=== PATIENT | female | born 1965 | race Caucasian/White ===

== ENCOUNTER → 2017-07-14 | Outpatient (CLI) | payer BC ==
--- NOTE | 2017-07-14 17:49 | BD ---
EXAMINATION TYPE: MG DEXA axial skeleton. DATE OF EXAM: 07/14/2017 COMPARISON: NONE CLINICAL HISTORY: PT IS A 52 YR OLD FEMALE....ICD-10 CODE: Z78.0 OSTEOPOROSIS Height: 65 Weight: 198 FRAX RISK QUESTIONS: Alcohol (3 or more units per day): NO Family History (Parent hip fracture): UNKNOWN Glucocorticoids (More than 3mos): NO (Ex: prednisone, prednisolone, methylprednisolone, dexamethasone, and hydrocortisone). History of Fracture in Adulthood: NO Secondary Osteoporosis: NO 1. Type 1 Diabetes: NO 2. Hyperthyroidism: NO 3. Menopause before 45: NO 4. Malnutrition: NO 5. Chronic liver disease: NO Rheumatoid Arthritis: NO Current Tobacco Use: NO RISK FACTORS HISTORY OF: Family History of Osteoporosis: UNSURE Active: NO Diet low in dairy products/other sources of calcium: NO Postmenopausal woman: YES AT 47 YRS OLD Hyperparathyroidism: NO Adrenal Insufficiency: NO MEDICATIONS: Thyroid Medications: YES, SYNTHROID How Lon YRS Additional Medications: XANAX, WELLBUTRIN, VIT D Additional History: NONE TO NOTE EXAM MEASUREMENTS: Bone mineral densitometry was performed using the [employer] System. Bone mineral density as measured about the Lumbar spine is: ----- L1-L4(G/cm2): 0.906 T Score Values are as follows: ----- L1: -2.6 ----- L2: -3.4 ----- L3: -2.2 ----- L4: -1.5 ----- L1-L4: -2.3 Bone mineral density THIS IS HER FIRST BONE DENSITY STUDY......BASELINE Bone mineral density about the R hip (g/cm2): 0.760 Bone mineral density about the L hip (g/cm2): 0.721 T Score values are as follows: -----R Neck: -1.7 -----L Neck: -2.1 -----R Total: -2.0 -----L Total: -2.3 Bone mineral density BASELINE STUDY FRAX%'S: THERE IS 7.3% CHANCE OF MAJOR OSTEOPOROTIC FX AND 1.0% FOR HIP FX.....PROBABILITY OF FX IN 10 YRS TIME IMPRESSION: Osteoporosis (T Score less than -2.5) as noted by T Score values at the There is increased fracture risk and therapy is usually indicated based on age. Re-Screen 1-2 years. NOTE: T-SCORE=SD OF THE YOUNG ADULT MEAN.
--- NOTE | 2017-07-15 11:43 | MM ---
Reason for exam: screening (asymptomatic). Last mammogram was performed 1 year and 5 months ago. History: Patient is postmenopausal. Physical Findings: A clinical breast exam by your physician is recommended on an annual basis and results should be correlated with mammographic findings. MG Screening Mammo w CAD Bilateral CC and MLO view(s) were taken. Prior study comparison: February 11, 2016, bilateral MG screening mammo w CAD. December 31, 2013, bilateral MG screening mammo w CAD. There are scattered fibroglandular densities. There is no discrete abnormality. No significant changes when compared with prior studies. ASSESSMENT: Negative, BI-RAD 1 RECOMMENDATION: Routine screening mammogram of both breasts in 1 year.
== END | disposition home or self-care (01) ==
LOC: RADMAMWWP 15:31
PROVIDERS: ATTEND Obstetrics & Gynecology
DX: Z12.31 Encounter for screening mammogram for malignant neoplasm of breast (principal); M81.0 Age-related osteoporosis without current pathological fracture; Z78.0 Asymptomatic menopausal state
CPT/HCPCS: 77080; G0202

== ENCOUNTER 2018-09-01 14:56 | Emergency (ER) | payer BC ==
[2018-09-01 15:02] VITALS: RESP 18
--- NOTE | 2018-09-01 16:10 | ED ---
General Adult HPI - General Chief complaint: Extremity Problem,Nontraumatic Stated complaint: Shoulder pain Source: patient Mode of arrival: ambulatory Limitations: no limitations - Related Data Home Medications Medication Instructions Recorded Confirmed ALPRAZolam [Xanax] 0.25 mg PO DAILY PRN 09/01/18 09/01/18 Aspirin EC [Ecotrin] 325 mg PO DAILY 09/01/18 09/01/18 Atorvastatin [Lipitor] 10 mg PO HS 09/01/18 09/01/18 Levothyroxine Sodium [Synthroid] 150 mcg PO DAILY 09/01/18 09/01/18 buPROPion XL [Wellbutrin Xl] 150 mg PO DAILY 09/01/18 09/01/18 Allergies Allergy/AdvReac Type Severity Reaction Status Date / Time No Known Allergies Allergy Verified 09/01/18 16:28 Review of Systems ROS Statement: Those systems with pertinent positive or pertinent negative responses have been documented in the HPI. ROS Other: All systems not noted in ROS Statement are negative. Past Medical History Past Medical History: Hyperlipidemia, Thyroid Disorder History of Any Multi-Drug Resistant Organisms: None Reported Additional Past Surgical History / Comment(s): Knee Past Psychological History: Anxiety, Depression Smoking Status: Never smoker Past Alcohol Use History: Occasional Past Drug Use History: None Reported General Exam Limitations: no limitations Course Vital Signs 09/01/18 14:58 Temperature 98.2 F Pulse Rate 89 Respiratory 18 Rate Blood Pressure 156/99 O2 Sat by Pulse 99 Oximetry Medical Decision Making - Medical Decision Making Dictation was produced using [employer] dictation software. please excuse any grammatical, word or spelling errors. Chief Complaint: 53-year-old female with past nuchal history of thyroidism presents with pleuritic chest pain 1 day. History of Present Illness: Patient 53-year-old female. Last week she had a arthroscopy of her right knee. She underwent physical therapy of the last couple days. Patient noted that she was having some right-sided pleuritic chest pain. Patient denies any history of asthma or COPD. Denies any shortness of breath at this time. Patient denies any calf pain, popliteal plain or medial thigh pain. Patient has no history of deep venous thrombosis. No family history of blood clots or clotting disorder. The ROS documented in this emergency department record has been reviewed and confirmed by me. Those systems with pertinent positive or negative responses have been documented in the HPI. All other systems are other negative and/or noncontributory. PHYSICAL EXAM: General Impression: Alert and oriented x3, not in acute distress HEENT: Normocephalic atraumatic, extra-ocular movements intact, pupils equal and reactive to light bilaterally, mucous membranes moist. Cardiovascular: Heart regular rate and rhythm, S1&S2 audible, no murmurs, rubs or gallops Chest: Lungs clear to auscultation bilaterally, no rhonchi, no wheeze, no rales Abdomen: Bowel sounds present, abdomen soft, non-tender, non-distended, no organomegaly Musculoskeletal: Pulses present and equal in all extremities, no peripheral edema Motor: Power 5/5 bilaterally, no focal deficits noted Neurological: CN II-XII grossly intact, no focal motor or sensory deficits noted Skin: Intact with no visualized rashes Psych: Normal affect and mood ED course: 53-year-old female presents with chief complaint of pleuritic chest pain. Vital signs upon arrival are within acceptable limits. EKGs benign. Patient is low risk for pulmonary embolus. Over she does have risk factors of pleuritic chest pain and recent surgery. Laboratory evaluation obtained. CBC unremarkable. Metabolic panel negative. D -dimer is 2.76. CT angios obtained showing no acute processes. Patient however does have findings of hiatal hernia. She is notified of this. Patient' s symptoms likely secondary to musculoskeletal strain. She is given a lidocaine patch. At this point there is no concern for acute cardiopulmonary emergency. Patient told to rest. Advised to take one by mouth analgesics for pain. - Lab Data Result diagrams: 09/01/18 16:30 09/01/18 16:30 Lab Results 09/01/18 09/01/18 09/01/18 Range/Units 16:30 16:30 16:30 WBC 7.9 (3.8-10.6) k/uL RBC 4.33 (3.80-5.40) m/uL Hgb 13.4 (11.4-16.0) gm/dL Hct 41.0 (34.0-46.0) % MCV 94.5 (80.0-100.0) fL MCH 30.9 (25.0-35.0) pg MCHC 32.7 (31.0-37.0) g/dL RDW 13.7 (11.5-15.5) % Plt Count 201 (150-450) k/uL Neutrophils % 74 % Lymphocytes % 14 % Monocytes % 7 % Eosinophils % 3 % Basophils % 1 % Neutrophils # 5.9 (1.3-7.7) k/uL Lymphocytes # 1.1 (1.0-4.8) k/uL Monocytes # 0.6 (0-1.0) k/uL Eosinophils # 0.2 (0-0.7) k/uL Basophils # 0.0 (0-0.2) k/uL PT 10.3 (9.0-12.0) sec INR 1.0 (<1.2) D-Dimer 2.76 H (<0.60) mg/L FEU Sodium 139 (137-145) mmol/L Potassium 4.5 (3.5-5.1) mmol/L Chloride 107 (98-107) mmol/L Carbon Dioxide 27 (22-30) mmol/L Anion Gap 5 mmol/L BUN 24 H (7-17) mg/dL Creatinine 0.83 (0.52-1.04) mg/dL Est GFR (CKD-EPI)AfAm >90 (>60 ml/min/1.73 sqM) Est GFR (CKD-EPI)NonAf 80 (>60 ml/min/1.73 sqM) Glucose 95 (74-99) mg/dL Calcium 9.0 (8.4-10.2) mg/dL Disposition Clinical Impression: Chest pain Disposition: HOME SELF-CARE Condition: Good Instructions: Chest Pain (DC) Is patient prescribed a controlled substance at d/c from ED?: No Referrals: Rai Welsh DO [Primary Care Provider] - 1-2 days Time of Disposition: 18:39
[2018-09-01 16:44] LABS: Basophils % (A) 1 %; Eosinophils # (A) 0.2 k/uL (0-0.7); Eosinophils % (A) 3 %; HGB 13.4 gm/dL (11.4-16.0); Lymphocytes # (A) 1.1 k/uL (1.0-4.8); Lymphocytes % (A) 14 %; MCH 30.9 pg (25.0-35.0); MCHC 32.7 g/dL (31.0-37.0); MCV 94.5 fL (80.0-100.0); Mean Platelet Volume 6.9; Monocytes # (A) 0.6 k/uL (0-1.0); Monocytes % (A) 7 %; Neutrophils # (A) 5.9 k/uL (1.3-7.7); Neutrophils % (A) 74 %; Platelet Count 201 k/uL (150-450); RBC 4.33 m/uL (3.80-5.40); RDW 13.7 % (11.5-15.5); WBC 7.9 k/uL (3.8-10.6)
[2018-09-01 16:54] LABS: Prothrombin Time 10.3 sec (9.0-12.0)
[2018-09-01 16:56] LABS: Anion Gap 5 mmol/L; Blood Urea Nitrogen 24 mg/dL (7-17); Carbon Dioxide 27 mmol/L (22-30); Chloride 107 mmol/L (98-107); Glucose 95 mg/dL (74-99); Potassium 4.5 mmol/L (3.5-5.1); Sodium 139 mmol/L (137-145)
[2018-09-01 16:57] LABS: D-Dimer 2.76 mg/L FEU (<0.60)
--- NOTE | 2018-09-01 18:19 | CT ---
EXAMINATION TYPE: CT angio chest DATE OF EXAM: 09/01/2018 6:04 PM COMPARISON: None HISTORY: chest pain radiating into right arm 1 week post op ortho sx CT DLP: 395.4 mGycm Automated exposure control for dose reduction was used. CONTRAST: CTA scan of the thorax is performed with IV Contrast, patient injected with 69cc mL of Isovue 370, pu lmonary embolism protocol. . FINDINGS: There are 3-D post processed images. There is no mediastinal adenopathy. There are no hilar masses. Thoracic aorta shows no evidence of an eurysm or dissection. There is a large hiatal hernia. Heart size is fairly normal. There is no perica rdial effusion. I see no filling defects in the pulmonary arteries. Upper abdominal soft tissues are grossly unremark able. There is a 1.5 cm hypodense area anterior left lobe of the liver that could be small hemangioma .. There is mild interstitial density at the right lung base consistent with subsegmental atelectasis. T here is no evidence of a pulmonary mass. There is no pneumothorax. There is no pleural effusion. Ther e is no pericardial effusion. Thoracic spine appears intact. I see no bony destructive process. IMPRESSION: NO EVIDENCE OF PULMONARY EMBOLISM. MILD SUBSEGMENTAL ATELECTASIS AT THE RIGHT LUNG BASE. LARGE HIATAL HERNIA WITH INTRATHORACIC STOMACH.
[2018-09-01] MEDS ORDERED: LIDOCAINE 5% PATCH TOPICAL STA (18:41)
[2018-09-01 19:12] VITALS: BP 148/89; PULSE 77; TEMP 98.9
== END 2018-09-01 19:06 | disposition home or self-care (01) ==
LOC: EC 14:56
DX: R07.81 Pleurodynia (principal); M25.511 Pain in right shoulder; E78.5 Hyperlipidemia, unspecified; E07.9 Disorder of thyroid, unspecified; F41.9 Anxiety disorder, unspecified; F32.9 Major depressive disorder, single episode, unspecified; Z79.82 Long term (current) use of aspirin; Z79.890 Hormone replacement therapy; Z79.899 Other long term (current) drug therapy
CPT/HCPCS: 36415; 85379; 80048; 85025; 85610; 71275; 99284; Q9967

== ENCOUNTER 2018-09-03 01:51 | Observation (INO) | payer BC ==
[2018-09-03] MEDS ORDERED: SODIUM CHLORIDE 0.9% 500 ML IV STA (02:15)
[2018-09-03] MEDS ORDERED: MORPHINE SULFATE 4 MG/ML SYRINGE IVP PRN (02:15)
--- NOTE | 2018-09-03 02:20 | ED ---
General Adult HPI - General Chief complaint: Back Pain/Injury Stated complaint: back pain Source: patient, family Mode of arrival: ambulatory Limitations: no limitations - Related Data Home Medications Medication Instructions Recorded Confirmed ALPRAZolam [Xanax] 0.25 mg PO DAILY PRN 09/01/18 09/01/18 Aspirin EC [Ecotrin] 325 mg PO DAILY 09/01/18 09/01/18 Atorvastatin [Lipitor] 10 mg PO HS 09/01/18 09/01/18 Levothyroxine Sodium [Synthroid] 150 mcg PO DAILY 09/01/18 09/01/18 buPROPion XL [Wellbutrin Xl] 150 mg PO DAILY 09/01/18 09/01/18 Allergies Allergy/AdvReac Type Severity Reaction Status Date / Time No Known Allergies Allergy Verified 09/03/18 02:06 Review of Systems ROS Statement: Those systems with pertinent positive or pertinent negative responses have been documented in the HPI. ROS Other: All systems not noted in ROS Statement are negative. Past Medical History Past Medical History: Hyperlipidemia, Thyroid Disorder History of Any Multi-Drug Resistant Organisms: None Reported Past Surgical History: Adenoidectomy, Section, Tonsillectomy Additional Past Surgical History / Comment(s): Knee Past Psychological History: Anxiety, Depression Smoking Status: Never smoker Past Alcohol Use History: Occasional Past Drug Use History: None Reported General Exam Limitations: no limitations Course Vital Signs 09/03/18 02:01 Temperature 98.4 F Pulse Rate 99 Respiratory 18 Rate Blood Pressure 147/84 O2 Sat by Pulse 95 Oximetry Medical Decision Making - Medical Decision Making Dictation was produced using [employer] dictation software. please excuse any grammatical, word or spelling errors. Chief Complaint: 53-year-old female who is known to me from recent ER visit presents with right-sided scapular pain. History of Present Illness: Female she is approximately 12 days out from right knee arthroscopic surgery for torn meniscus. She was seen by me 2 days ago where she was evaluated for the same pain. Patient was worked up for pulmonary embolus however CT angiogram did not reveal any acute cardiopulmonary processes. Patient states that since being discharged. Patient has gotten significantly worse. Patient reports that yesterday her [place] as her help however today pain is so severe problems. To the emergency department. Patient denies any cough. States that her pain is worse with deep inspiration. The ROS documented in this emergency department record has been reviewed and confirmed by me. Those systems with pertinent positive or negative responses have been documented in the HPI. All other systems are other negative and/or noncontributory. PHYSICAL EXAM: General Impression: Alert and oriented x3, acute distress secondary to pain HEENT: Normocephalic atraumatic, extra-ocular movements intact, pupils equal and reactive to light bilaterally, mucous membranes moist. Cardiovascular: Heart regular rate and rhythm, S1&S2 audible, no murmurs, rubs or gallops Chest: Lungs clear to auscultation bilaterally, no rhonchi, no wheeze, no rales Abdomen: Bowel sounds present, abdomen soft, non-tender, non-distended, no organomegaly Musculoskeletal: Pulses present and equal in all extremities, no peripheral edema Motor: Power 5/5 bilaterally, no focal deficits noted Neurological: CN II-XII grossly intact, no focal motor or sensory deficits noted Skin: Intact with no visualized rashes Psych: Normal affect and mood ED course: 53-year-old female presents with right scapular pain. Patient's symptoms of pleuritic. Vital signs upon arrival are within acceptable limits. Chest x-ray showed pleural reaction in the right lung base. Patient was worked up for PE 2 days ago with no evidence of pulmonary embolus. Patient seemed stable. Patient given IV analgesics with improvement of symptoms. EKGs benign. Patient be admitted for incentive spirometry, IV analgesia. She will be admitted to observation. EKG interpretation: Ventricular rate 84, sinus rhythm, GA interval 152, care is 80, QTc 441. No GA prolongation, no QTC prolongation, no ST or T-wave changes noted. Overall, this EKG is unremarkable - Lab Data Result diagrams: 09/03/18 02:41 09/03/18 02:41 Lab Results 09/03/18 09/03/18 Range/Units 02:41 02:41 WBC 7.5 (3.8-10.6) k/uL RBC 4.34 (3.80-5.40) m/uL Hgb 13.3 (11.4-16.0) gm/dL Hct 39.7 (34.0-46.0) % MCV 91.5 (80.0-100.0) fL MCH 30.7 (25.0-35.0) pg MCHC 33.5 (31.0-37.0) g/dL RDW 13.7 (11.5-15.5) % Plt Count 195 (150-450) k/uL Neutrophils % 73 % Lymphocytes % 16 % Monocytes % 6 % Eosinophils % 3 % Basophils % 1 % Neutrophils # 5.5 (1.3-7.7) k/uL Lymphocytes # 1.2 (1.0-4.8) k/uL Monocytes # 0.5 (0-1.0) k/uL Eosinophils # 0.2 (0-0.7) k/uL Basophils # 0.0 (0-0.2) k/uL Sodium 138 (137-145) mmol/L Potassium 4.3 (3.5-5.1) mmol/L Chloride 108 H (98-107) mmol/L Carbon Dioxide 24 (22-30) mmol/L Anion Gap 6 mmol/L BUN 26 H (7-17) mg/dL Creatinine 0.70 (0.52-1.04) mg/dL Est GFR (CKD-EPI)AfAm >90 (>60 ml/min/1.73 sqM) Est GFR (CKD-EPI)NonAf >90 (>60 ml/min/1.73 sqM) Glucose 101 H (74-99) mg/dL Calcium 9.3 (8.4-10.2) mg/dL Magnesium 1.9 (1.6-2.3) mg/dL Disposition Clinical Impression: Pleurisy Disposition: ADMITTED IP TO THIS [facility] Condition: Fair Referrals: Rai Welsh DO [Primary Care Provider] - 1-2 days Decision Time: 03:26
[2018-09-03] MEDS ORDERED: KETOROLAC 30 MG/ML 1 ML VIAL IVP STA (02:29)
[2018-09-03 02:59] LABS: Basophils % (A) 1 %; Eosinophils # (A) 0.2 k/uL (0-0.7); Eosinophils % (A) 3 %; HCT 39.7 % (34.0-46.0); HGB 13.3 gm/dL (11.4-16.0); Lymphocytes # (A) 1.2 k/uL (1.0-4.8); Lymphocytes % (A) 16 %; MCH 30.7 pg (25.0-35.0); MCHC 33.5 g/dL (31.0-37.0); MCV 91.5 fL (80.0-100.0); Monocytes # (A) 0.5 k/uL (0-1.0); Monocytes % (A) 6 %; Neutrophils # (A) 5.5 k/uL (1.3-7.7); Neutrophils % (A) 73 %; Platelet Count 195 k/uL (150-450); RBC 4.34 m/uL (3.80-5.40); RDW 13.7 % (11.5-15.5); WBC 7.5 k/uL (3.8-10.6)
[2018-09-03 03:08] LABS: Anion Gap 6 mmol/L; Blood Urea Nitrogen 26 mg/dL (7-17); Calcium 9.3 mg/dL (8.4-10.2); Carbon Dioxide 24 mmol/L (22-30); Chloride 108 mmol/L (98-107); Glucose 101 mg/dL (74-99); Magnesium 1.9 mg/dL (1.6-2.3); Potassium 4.3 mmol/L (3.5-5.1); Sodium 138 mmol/L (137-145)
--- NOTE | 2018-09-03 03:12 | XR ---
EXAMINATION TYPE: XR chest 2V DATE OF EXAM: 09/03/2018 COMPARISON: NONE HISTORY: Chest pain TECHNIQUE: Frontal and lateral views of the chest are obtained. FINDINGS: There is hiatal hernia. There is blunting of right costophrenic angle. There is no heart f ailure. There are no hilar masses. Mediastinum is normal. IMPRESSION: There is some pleural reaction at the lateral right lung base. No heart failure. Hiatal hernia.
[2018-09-03] MEDS ORDERED: NALOXONE 0.4 MG/ML 1 ML VIAL IV PRN (03:22)
[2018-09-03] MEDS ORDERED: ONDANSETRON 4 MG/2 ML VIAL IVP PRN (03:22)
[2018-09-03] MEDS ORDERED: MORPHINE SULFATE 4 MG/ML SYRINGE IV PRN (03:22)
[2018-09-03 04:02] VITALS: BMI 29.2
[2018-09-03] MEDS ORDERED: HYDROcodone/APAP 5-325MG 1 EACH TAB PO PRN (11:52)
[2018-09-03] MEDS ORDERED: HYDROcodone/APAP 7.5-325MG 1 EACH TAB PO PRN (11:53)
[2018-09-03] MEDS: ALPRAZolam 0.25 MG TAB PO PRN ×2 (12:23→23:33)
[2018-09-03] MEDS: KETOROLAC 30 MG/ML 1 ML VIAL IVP PRN ×2 (12:24→19:25)
[2018-09-03] MEDS: HEPARIN SODIUM,PORCINE 5,000 UNIT/ML 1 ML VIAL SQ SCH ×2 (15:31→19:53)
[2018-09-03] MEDS: buPROPion XL 150 MG TAB.ER.24H PO SCH (15:39)
[2018-09-03] MEDS: HYDROcodone/APAP 7.5-325MG 1 EACH TAB PO PRN ×2 (15:42→23:33)
--- NOTE | 2018-09-03 16:52 | P.HPIM ---
History of Present Illness H&P Date: 09/03/18 Chief Complaint: Right-sided chest pain Ms. Davis is a 52-year-old female with a past medical history of hyperlipidemia , hypothyroidism, anxiety with depression coming into the hospital with a chief complaint of right-sided chest pain. Patient complains of pain that is worse on taking a deep breath on the right side of the chest that has been ongoing for the past 2-3 days. Patient was here in the ER yesterday had a CT for PE that was negative and so sent home. Patient states that after going home she still continued to have the pain and so is admitted for observation. Patient states that the pain radiates from one place to another. Sometimes it is on the side of her chest and sometimes it is under her right breast and sometimes on the right side of the neck. It is an episodic pain that comes and goes. Patient denies having any difficulty in breathing. No cough. No fever. No swelling of her lower extremities. Patient had a right knee arthroplasty done couple of weeks back. Patient denies having any left-sided chest pain. No cough. No fever. No orthopnea or PND. No cold-like symptoms. No abdominal pain nausea vomiting or diarrhea. No dysuria or hematuria. Patient denies having any headaches blurring of vision or slurred speech. No weakness of her extremities. Review of Systems REVIEW OF SYSTEMS: PSYCH: History of anxiety and depression NEURO:No c/o weakness of the extremties, No facial droop, No speech abnormalities. VASCULAR: Peripheral nervous system within the normal limits no edema HEMATOLOGIC: No history of easy bleeding and bruising . No recent infections . RESPIRATORY: As per HPI IMMUNE: No infections INTEGUMENT: no rashes OPHTHALMOLOGIC: No blurry vision and no eye discharge : No dysuria or hematuria CANCER GENETIC COUNSELOR: No bleeding PV CARDIAC: No left-sided chest pain , shortness of breath , paroxysmal nocturnal dyspnea MUSCULOSKELETAL : No Aches or pains in the joints or muscles. GI: No abdominal pain, Nausea or vomiting. No constipation or diarrhea. Past Medical History Past Medical History: Hyperlipidemia, Thyroid Disorder History of Any Multi-Drug Resistant Organisms: None Reported Past Surgical History: Adenoidectomy, Section, Orthopedic Surgery, Tonsillectomy Additional Past Surgical History / Comment(s): Knee Past Psychological History: Anxiety, Depression Smoking Status: Never smoker Past Alcohol Use History: Occasional Past Drug Use History: None Reported Medications and Allergies Home Medications Medication Instructions Recorded Confirmed Type ALPRAZolam [Xanax] 0.25 mg PO DAILY PRN 09/01/18 09/03/18 History Aspirin EC [Ecotrin] 325 mg PO DAILY 09/01/18 09/03/18 History Atorvastatin [Lipitor] 10 mg PO HS 09/01/18 09/03/18 History Levothyroxine Sodium [Synthroid] 150 mcg PO DAILY 09/01/18 09/03/18 History buPROPion XL [Wellbutrin Xl] 150 mg PO DAILY 09/01/18 09/03/18 History HYDROcodone/APAP 7.5-325MG [[place] 1 tab PO Q4-6H PRN 09/03/18 09/03/18 History 7.5-325] Ondansetron Odt [Zofran ODT] 4 mg PO Q8H 09/03/18 09/03/18 History Allergies Allergy/AdvReac Type Severity Reaction Status Date / Time No Known Allergies Allergy Verified 09/03/18 08:01 Physical Exam Vitals: Vital Signs Temp Pulse Pulse Resp BP BP Pulse Ox 09/03/18 07:35 98.2 F 77 17 116/76 96 09/03/18 04:00 98.2 F 82 15 114/79 95 09/03/18 03:39 80 16 126/88 97 09/03/18 02:01 98.4 F 99 18 147/84 95 Intake and Output 09/03/18 09/03/18 09/03/18 06:59 14:59 22:59 Intake Total 720 Balance 720 Intake: Oral 720 Other: Voiding Method Toilet # Voids 1 1 Weight 87.09 kg GENERAL EXAM GEN. APPEARANCE: alert, in no apparent distress HEAD EXAM: atraumatic, normocephalic, normal inspection EYE EXAM: Pupils equal and reactive to light. No pallor. No icterus. ENT EXAM: normal exam, mucous membranes moist NECK EXAM: normal inspection. No thyromegaly. No JVD. RESPIRATORY EXAM: Poor respiratory effort. No wheezes. Normal breath sounds bilaterally. No crackles. CARDIOVASCULAR EXAM: S1 and S2 heard. No additional sounds. GI/ABDOMINAL EXAM: Soft, nontender. Normal bowel sounds. No organomegaly. EXTREMITIES EXAM: Patient has socks on both the extremities and has mild markings of the socks on her feet. No edema. NEUROLOGICAL EXAM: alert, oriented X3, no focal neurological deficits PSYCHIATRIC EXAM: normal affect, normal mood SKIN EXAM: warm, dry, intact, normal color. Absent: rash Results CBC & Chem 7: 09/03/18 02:41 09/03/18 02:41 Labs: Abnormal Lab Results - Last 24 Hours (Table) 09/03/18 Range/Units 02:41 Chloride 108 H (98-107) mmol/L BUN 26 H (7-17) mg/dL Glucose 101 H (74-99) mg/dL Thrombosis Risk Factor Assmnt - Choose All That Apply Any of the Below Risk Factors Present?: Yes Each Factor Represents 1 point: Age 41-60 years, Obesity (BMI >25) Other Risk Factors: No Other congenital or acquired thrombophilia - If yes, enter type in comment: No Thrombosis Risk Factor Assessment Total Risk Factor Score: 2 Thrombosis Risk Factor Assessment Level: Low Risk Assessment and Plan Assessment: ASSESSMENT Pleuritic chest pain - intractable Hypothyroidism Hyperlipidemia Anxiety with depression Recent history of right knee arthroplasty PLAN: Patient has pleuritic type of chest pain, she had a CT angiogram that was negative for PE. But it was showing right atelectasis. Patient is advised to continue incentive spirometry. Most likely the chest pain is musculoskeletal in origin. Patient has been started on Dilaudid and Toradol which seems to be helping with her pain. Patient has been restarted on all her home medications. Patient has been admitted to the observation unit, will follow the patient closely. Further recommendations to follow depending on the progress of the patient.
[2018-09-03] MEDS: ATORVASTATIN 10 MG TAB PO SCH (19:53)
[2018-09-03] MEDS: HYDROmorphone 0.5 MG/0.5 ML SYRINGE IVP PRN (19:57)
[2018-09-04] MEDS: KETOROLAC 30 MG/ML 1 ML VIAL IVP PRN (01:21)
[2018-09-04] MEDS: HYDROmorphone 0.5 MG/0.5 ML SYRINGE IVP PRN (05:44)
[2018-09-04] MEDS: LEVOTHYROXINE 75 MCG TAB PO SCH (05:45)
[2018-09-04] MEDS: ASPIRIN 325 MG TAB PO SCH (08:03)
[2018-09-04] MEDS: buPROPion XL 150 MG TAB.ER.24H PO SCH (08:03)
[2018-09-04] MEDS: HEPARIN SODIUM,PORCINE 5,000 UNIT/ML 1 ML VIAL SQ SCH ×2 (08:03→20:26)
[2018-09-04] MEDS: HYDROcodone/APAP 7.5-325MG 1 EACH TAB PO PRN ×3 (08:04→20:31)
[2018-09-04] MEDS: ATORVASTATIN 10 MG TAB PO SCH (20:26)
--- NOTE | 2018-09-04 20:37 | P.PN ---
Subjective Progress Note Date: 09/11/18 Principal diagnosis: Pleasant 53-year-old white female admitted through the emergency department with intractable pulmonary pain in the form of pleurisy. She underwent a spinal CAT scan which is negative for PE she is post operative rights knee arthroscopy. Her pain is relieved by IV Dilaudid and morphine and Phel[place] and Toradol. She has no fever. Objective - Vital Signs Vital signs: Vital Signs Temp 99.3 F 09/04/18 16:00 Pulse 99 09/04/18 16:00 Resp 18 09/04/18 16:00 BP 136/84 09/04/18 16:00 Pulse Ox 97 09/04/18 16:00 Intake & Output 09/04/18 09/04/18 09/05/18 06:59 18:59 06:59 Intake Total 1000 Balance 1000 Intake: Oral 1000 Other: Voiding Method Toilet Toilet # Voids 2 2 Physical Exam vital signs are stable HEENT [head is normocephalic/atraumatic no redistribution or hair pupils equal round react to light extraocular muscles are intact.] Heart heart is regular rate and rhythm without murmurs rubs or gallops. Lungs clear to auscultation bilaterally without adventitious breath sounds - Labs CBC & Chem 7: 09/03/18 02:41 09/03/18 02:41 Assessment and Plan Assessment: PLAN: Home meds as appropriate Monitor labs DVT prophylaxis Monitor vital signs and address as appropriate Discharge planning: Patient to return home when stable Further recommendations pending patient's course (1) Chest pain Current Visit: Yes Status: Acute Code(s): R07.9 - CHEST PAIN, UNSPECIFIED SNOMED Code(s): 23594404 (2) Pleurisy Current Visit: Yes Status: Acute Code(s): R09.1 - PLEURISY SNOMED Code(s) : 857785284 (3) Hyperlipemia Current Visit: No Status: Acute Code(s): E78.5 - HYPERLIPIDEMIA, UNSPECIFIED SNOMED Code(s): 74711697 (4) Hypothyroidism Current Visit: No Status: Acute Code(s): E03.9 - HYPOTHYROIDISM, UNSPECIFIED SNOMED Code(s): 57003901
[2018-09-05] MEDS: HYDROcodone/APAP 7.5-325MG 1 EACH TAB PO PRN ×2 (03:16→08:19)
[2018-09-05] MEDS: LEVOTHYROXINE 75 MCG TAB PO SCH (06:30)
[2018-09-05 07:07] VITALS: BP 107/76; PULSE 80; RESP 18; TEMP 98.6
[2018-09-05] MEDS: ASPIRIN 325 MG TAB PO SCH (08:18)
[2018-09-05] MEDS: buPROPion XL 150 MG TAB.ER.24H PO SCH (08:18)
[2018-09-05] MEDS: KETOROLAC 30 MG/ML 1 ML VIAL IVP PRN (08:18)
[2018-09-05] MEDS: HEPARIN SODIUM,PORCINE 5,000 UNIT/ML 1 ML VIAL SQ SCH (08:18)
[2018-09-05] MEDS: HYDROmorphone 0.5 MG/0.5 ML SYRINGE IVP PRN (09:29)
--- NOTE | 2018-09-05 20:13 | P.DS ---
Providers Date of admission: 09/03/18 03:27 Expected date of discharge: 09/05/18 Attending physician: Rai Welsh Primary care physician: Rai Welsh - Discharge Diagnosis(es) (1) Chest pain This is a 53-year-old white female who recently underwent a right knee arthroscopy she was at home when she developed an acute pleuritic type chest pain and was admitted to the hospital for further treatment and her pain was controlled with IV Dilaudid and morphine and hydration as well as traditional NSAIDs Toradol. She was doing well without any problems. Her CTA rate showed no evidence of pulmonary embolism there was a incidental note of a heart hiatal hernia found which would be followed up as outpatient patient had no further problems and her chest pain was improved. She'll be discharged today with follow-up in the office and the dictation Status: Acute (2) Pleurisy Status: Acute (3) Hyperlipemia Status: Acute (4) Hypothyroidism Status: Acute Patient Condition at Discharge: Fair Plan - Discharge Summary Discharge Rx Participant: Yes New Discharge Prescriptions: New HYDROcodone/APAP 5-325MG [[place] 5-325] 1 each PO Q6HR PRN tab PRN Reason: MILD Pain Ketorolac [Toradol] 10 mg PO Q6HR #10 tab Continue buPROPion XL [Wellbutrin XL] 150 mg PO DAILY Levothyroxine Sodium [Synthroid] 150 mcg PO DAILY ALPRAZolam [Xanax] 0.25 mg PO DAILY PRN PRN Reason: Anxiety Atorvastatin [Lipitor] 10 mg PO HS Aspirin EC [Ecotrin] 325 mg PO DAILY HYDROcodone/APAP 7.5-325MG [[place] 7.5-325] 1 tab PO Q4-6H PRN PRN Reason: Pain Ondansetron Odt [Zofran ODT] 4 mg PO Q8H Discharge Medication List ALPRAZolam [Xanax] 0.25 mg PO DAILY PRN 09/01/18 [History] Aspirin EC [Ecotrin] 325 mg PO DAILY 09/01/18 [History] Atorvastatin [Lipitor] 10 mg PO HS 09/01/18 [History] Levothyroxine Sodium [Synthroid] 150 mcg PO DAILY 09/01/18 [History] buPROPion XL [Wellbutrin XL] 150 mg PO DAILY 09/01/18 [History] HYDROcodone/APAP 7.5-325MG [[place] 7.5-325] 1 tab PO Q4-6H PRN 09/03/18 [History] Ondansetron Odt [Zofran ODT] 4 mg PO Q8H 09/03/18 [History] HYDROcodone/APAP 5-325MG [[place] 5-325] 1 each PO Q6HR PRN tab 09/05/18 [Rx] Ketorolac [Toradol] 10 mg PO Q6HR #10 tab 09/05/18 [Rx] Follow up Appointment(s)/Referral(s): Rai Welsh DO [Primary Care Provider] - 09/13/18 10:40 am (Appointment made for TuesdaySeptember 13 @ 10:40) Patient Instructions/Handouts: Pleurisy (GEN) Discharge Disposition: HOME SELF-CARE
== END 2018-09-05 10:05 | disposition home or self-care (01) ==
LOC: EC 01:51 → 1SOBS 03:27
PROVIDERS: ADMIT Family Medicine; ATTEND Family Medicine
DX: R07.89 Other chest pain (principal); R09.1 Pleurisy; E78.5 Hyperlipidemia, unspecified; E03.9 Hypothyroidism, unspecified; J98.11 Atelectasis; F41.8 Other specified anxiety disorders; K44.9 Diaphragmatic hernia without obstruction or gangrene; E66.9 Obesity, unspecified; Z68.29 Body mass index [BMI] 29.0-29.9, adult; Z79.82 Long term (current) use of aspirin; Z79.890 Hormone replacement therapy; Z79.899 Other long term (current) drug therapy; Z98.890 Other specified postprocedural states
CPT/HCPCS: 96372 ×3; 96375 ×2; 96376 ×3; 96374; 99285; 36415; 93005; 80048; 83735; 85025; 71046; G0378 ×3; J2270; J1644 ×3; J1885 ×3; J1170 ×3

== ENCOUNTER 2018-12-22 10:14 | Day surgery (SDC) | payer BC ==
[2018-12-20 12:34] VITALS: BMI 31.3
[~2018-12-22 10:14] MED LIST: LACTATED RINGERS 1,000 ML IV SCH; LIDOCAINE 1% 20 ML VIAL (10MG/ML) FOR IV START INTRADERMA PRN
[2018-12-22 10:40] VITALS: TEMP 97.7
[2018-12-22] MEDS ORDERED: PROPOFOL 10 MG/ML 20 ML VIAL IV ONE (11:05)
--- NOTE | 2018-12-22 11:17 | P.GSHP ---
History of Present Illness H&P Date: 12/22/18 Chief Complaint: Hiatal hernia, reflux Patient here today for upper endoscopy. Patient was hospitalized in August. She had pleurisy at that time. During workup she was found have a large hiatal hernia. Admits to mild reflux symptoms. No vomiting. No bloating. No dysp hagia. CAT scan shows a proximal 90% of the stomach above the diaphragm. Past Medical History Past Medical History: Hyperlipidemia, Thyroid Disorder Additional Past Medical History / Comment(s): STATES HAS "HIATAL HERNIA", PLEURISY History of Any Multi-Drug Resistant Organisms: None Reported Past Surgical History: Adenoidectomy, Section, Orthopedic Surgery, Tonsillectomy Additional Past Surgical History / Comment(s): RT Knee ARTHROSCOPY Past Anesthesia/Blood Transfusion Reactions: No Reported Reaction Smoking Status: Never smoker - Past Family History Father Family Medical History: Deep Vein Thrombosis (DVT) Medications and Allergies Home Medications Medication Instructions Recorded Confirmed Type ALPRAZolam [Xanax] 0.25 mg PO DAILY PRN 09/01/18 12/22/18 History Atorvastatin [Lipitor] 10 mg PO HS 09/01/18 12/22/18 History Levothyroxine Sodium [Synthroid] 150 mcg PO DAILY 09/01/18 12/22/18 History buPROPion XL [Wellbutrin XL] 150 mg PO DAILY 09/01/18 12/22/18 History Allergies Allergy/AdvReac Type Severity Reaction Status Date / Time No Known Allergies Allergy Verified 09/03/18 08:01 Surgical - Exam Vital Signs Temp Pulse Resp BP Pulse Ox 97.7 F 72 16 137/90 92 L 12/22/18 10:38 12/22/18 10:38 12/22/18 10:38 12/22/18 10:38 12/22/18 10:38 Physical exam: General: Well-developed, well-nourished HEENT: Normocephalic, sclerae nonicteric Abdomen: Nontender, nondistended Extremities: No edema Neuro: Alert and oriented Assessment and Plan (1) Hiatal hernia Narrative/Plan: Will proceed with upper endoscopy at this time. Current Visit: Yes Status: Acute Code(s): K44.9 - DIAPHRAGMATIC HERNIA WITHOUT OBSTRUCTION OR GANGRENE SNOMED Code(s): 90336002
--- NOTE | 2018-12-22 11:26 | P.PCN ---
Date of Procedure: 12/22/18 Procedure(s) Performed: Preoperative Dx: GERD, hiatal hernia Postoperative Dx: Large hiatal hernia, mild gastritis Procedure: EGD with Bx Anesthesia: Sedation Endoscopist: Dr. Braxton Specimens: Antrum Endoscopic Procedure: The patient was on the endoscopy table in the left decubitus position. The Olympus gastroscope was inserted into the oropharynx and passed under direct visualization to the proximal duodenum. Because of the large hiatal hernia could not advance the scope into the second portion of the duodenum. No abnormalities within the bulb were seen. The pylorus was widely patent. The stomach was carefully inspected. There was mild gastritis present. Biopsy of the antrum took place. On this current study approximately 40% of the stomach was present above the diaphragm. On the patient's recent CAT scan however I would estimate 90% of the stomach was above the diaphragm. A biopsy of the antrum took place for mild gastritis present. Retroflexion revealed the hiatal hernia and the diaphragmatic defect. There was no inflammatory changes above the level of the diaphragm. The Z line was present at 31 cm. The esophagus was free of inflammation. The patient was then taken to the recovery room in stable condition per anesthesia guidelines. Recommendations: Continue antiacid therapy. We'll discuss surgical options with patient.
[2018-12-22 11:39] VITALS: RESP 18
[2018-12-22 12:08] VITALS: BP 158/60; PULSE 78
== END 2018-12-22 12:09 | disposition home or self-care (01) ==
LOC: ORWHC2ENDO 10:14
PROVIDERS: ATTEND Surgery
DX: K29.50 Unspecified chronic gastritis without bleeding (principal); K44.9 Diaphragmatic hernia without obstruction or gangrene; E78.5 Hyperlipidemia, unspecified; E07.9 Disorder of thyroid, unspecified; Z87.09 Personal history of other diseases of the respiratory system; Z79.890 Hormone replacement therapy; Z79.899 Other long term (current) drug therapy
CPT/HCPCS: 88305; 43239; J2704

== ENCOUNTER → 2020-03-28 | Outpatient (CLI) | payer BC ==
--- NOTE | 2020-03-30 17:21 | CT ---
EXAMINATION TYPE: CT chest w con DATE OF EXAM: 03/28/2020 COMPARISON: CTA chest 09/01/2018 HISTORY: Post hiatal hernia sx a couple months ago. Patient having no complaints. CT DLP: 455 mGycm Automated exposure control for dose reduction was used. CONTRAST: CT scan of the chest is performed with IV Contrast, patient injected with 100ml mL of Isovue 300. FINDINGS: LUNGS: Lungs are grossly clear. There is a 3 mm pulmonary nodule of the left lower lobe unchanged fro m 09/01/2018 CT comparison, likely benign. No pleural effusion. No pneumothorax. The tracheobronchial tree is patent. MEDIASTINUM/SOFT TISSUES: There is a 5 mm area of enhancement within the right thyroid gland (3:5). N o axillary, hilar, or mediastinal lymphadenopathy greater than 1 cm. Cardiac size is normal. No peric ardial effusion. No thoracic aortic aneurysm. UPPER ABDOMEN: Postsurgical changes involving the gastric fundus and GE junction, with no evidence of recurrent hernia. No adrenal nodule. Hepatic cysts. OSSEOUS: Increased thoracic kyphosis. IMPRESSION: 1. Postsurgical changes of the gastric fundus and GE junction, with no evidence of recurrent hiatal h ernia. 2. Right thyroid gland 5 mm focus of enhancement. Dedicated thyroid ultrasound follow-up is recommend ed. A Yellow level critical message alert has been initiated for Rai Welsh DO via the [employer] Critical Results System on 03/30/2020 5:18 PM. This message alert has been sent to Rai Welsh DO via the preferences provided by the clinician for the receipt of Radiology Critical Findings. Message ID [id number].
== END | disposition home or self-care (01) ==
LOC: RADCTMAIN 13:52
PROVIDERS: ATTEND Family Medicine
DX: K44.9 Diaphragmatic hernia without obstruction or gangrene (principal); Z98.890 Other specified postprocedural states
CPT/HCPCS: 71260; Q9967

== ENCOUNTER → 2020-04-15 | Outpatient (CLI) | payer BC ==
--- NOTE | 2020-04-16 07:28 | US ---
EXAMINATION TYPE: US thyroid st tissue head/neck DATE OF EXAM: 04/15/2020 COMPARISON: NONE CLINICAL HISTORY: E07.89 Other specified disorders of thyroid. F/U to ct scan on thyroid meds for arianna eason. GLAND SIZE: Right Lobe: 4.5 x 1.3 x 1.5 cm Overall Parenchyma: heterogenous Left Lobe: 3.9 x 1.1 x 1.5 cm Overall Parenchyma: heterogeneous Isthmus Thickness: .2 cm NODULES RIGHT: # of nodules measured on right: 0 LEFT: # of nodules measured on left: 0 ISTHMUS: # of nodules measured in the isthmus: 0 Bilateral neck scanned, no evidence of lymphadenopathy. IMPRESSION: Nonspecific heterogenous echotexture. No evidence for distinct nodule at this time.
== END | disposition home or self-care (01) ==
LOC: RADUSWWP 16:02
PROVIDERS: ATTEND Family Medicine
DX: E07.89 Other specified disorders of thyroid (principal)
CPT/HCPCS: 76536

== ENCOUNTER → 2020-06-11 | Outpatient (CLI) | payer BC | END | disposition home or self-care (01) | LOC: LABWHC1 11:07 | PROVIDERS: ATTEND Family Medicine | DX: Z03.818 Encounter for observation for suspected exposure to other biological agents ruled out (principal) | CPT/HCPCS: U0003; C9803 ==

== ENCOUNTER → 2021-02-20 | Outpatient (CLI) | payer BC ==
--- NOTE | 2021-02-24 09:04 | MM ---
Reason for exam: screening (asymptomatic). Last mammogram was performed 3 years and 7 months ago. History: Patient is postmenopausal. Physical Findings: A clinical breast exam by your physician is recommended on an annual basis and results should be correlated with mammographic findings. MG 3D Screening Mammo W/Cad Bilateral CC and MLO view(s) were taken. Prior study comparison: July 14, 2017, bilateral MG screening mammo w CAD. February 11, 2016, bilateral MG screening mammo w CAD. There are scattered fibroglandular densities. ASSESSMENT: Negative, BI-RAD 1 RECOMMENDATION: Routine screening mammogram of both breasts in 1 year.
== END | disposition home or self-care (01) ==
LOC: RADMAMWWP 09:08
PROVIDERS: ATTEND Family Medicine
DX: Z12.31 Encounter for screening mammogram for malignant neoplasm of breast (principal); Z78.0 Asymptomatic menopausal state
CPT/HCPCS: 77063; 77067

== ENCOUNTER → 2021-12-19 | Outpatient (CLI) | payer BC ==
[2021-12-19 11:24] LABS: Basophils # (A) 0.04 X 10*3/uL (0.00-0.10); Basophils % (A) 1.1 %; Eosinophils # (A) 0.14 X 10*3/uL (0.04-0.35); Eosinophils % (A) 3.7 %; HCT 39.7 % (37.2-46.3); HGB 12.7 g/dL (12.0-15.0); Immature Grans, Automated 0.3 %; Lymphocytes # (A) 1.01 X 10*3/uL (0.90-5.00); Lymphocytes % (A) 26.7 %; MCH 31.4 pg (27.0-32.0); MCV 98.3 fL (80.0-97.0); Mean Platelet Volume 10.3 fL (9.5-12.2); Monocytes # (A) 0.47 X 10*3/uL (0.20-1.00); Monocytes % (A) 12.4 %; NRBC Per 100 WBC 0 /100 WBCS (0.0-0.0); Neutrophils # (A) 2.11 X 10*3/uL (1.80-7.70); Neutrophils % (A) 55.8 %; Platelet Count 217 X 10*3/uL (140-440); RBC 4.04 X 10*6/uL (4.10-5.20); RDW 12.8 % (11.5-14.5); WBC 3.78 X 10*3/uL (4.50-10.00)
[2021-12-19 11:44] LABS: T4, Free (Free Thyroxine) 1.73 ng/dL (0.800-1.800)
[2021-12-19 12:06] LABS: INR 1.01 (0.90-1.11); Prothrombin Time 11.1 sec (9.9-11.9)
== END | disposition home or self-care (01) ==
LOC: LABWHC1 08:09
PROVIDERS: ATTEND Family Medicine
DX: I10 Essential (primary) hypertension (principal); E03.9 Hypothyroidism, unspecified; D68.4 Acquired coagulation factor deficiency
CPT/HCPCS: 36415; 84439; 84443; 85025; 85610

== ENCOUNTER 2022-11-02 11:25 | Day surgery (SDC) | payer BC ==
[2022-10-28 10:23] VITALS: BMI 23.0
[~2022-11-02 11:25] MED LIST changes: -LIDOCAINE 1% 20 ML VIAL (10MG/ML) FOR IV START INTRADERMA PRN
[2022-11-02 11:59] VITALS: TEMP 97.7
[2022-11-02] MEDS ORDERED: PROPOFOL 10 MG/ML 20 ML VIAL IV ONE (12:25)
--- NOTE | 2022-11-02 12:30 | P.GSHP ---
History of Present Illness H&P Date: 11/02/22 Chief Complaint: Colon cancer screening 57-year-old female here today for colonoscopy. Last colonoscopy over 10 years ago. No bowel complaints. Patient had recent repair of a large hiatal hernia at . Doing well from that. Past Medical History Past Medical History: GERD/Reflux, Hyperlipidemia, Thyroid Disorder Additional Past Medical History / Comment(s): HX PLEURISY History of Any Multi-Drug Resistant Organisms: None Reported Past Surgical History: Adenoidectomy, Section, Hernia Repair, Orthopedic Surgery, Tonsillectomy Additional Past Surgical History / Comment(s): RT Knee ARTHROSCOPY, EGD/COLONOSCOPY Past Anesthesia/Blood Transfusion Reactions: No Reported Reaction Smoking Status: Never smoker - Past Family History Father Family Medical History: Deep Vein Thrombosis (DVT) Medications and Allergies Home Medications Medication Instructions Recorded Confirmed Type ALPRAZolam [Xanax] 0.25 mg PO DAILY PRN 09/01/18 11/02/22 History Atorvastatin [Lipitor] 10 mg PO HS 09/01/18 11/02/22 History Levothyroxine Sodium [Synthroid] 150 mcg PO DAILY 09/01/18 11/02/22 History buPROPion XL [Wellbutrin XL] 150 mg PO DAILY 09/01/18 11/02/22 History Fluticasone Nasal [place] [Flonase 2 spray EA NOSTRIL HS 10/28/22 11/02/22 History Nasal [place]] Omeprazole 20 mg PO DAILY 10/28/22 11/02/22 History Allergies Allergy/AdvReac Type Severity Reaction Status Date / Time No Known Allergies Allergy Verified 11/02/22 11:53 Surgical - Exam Vital Signs Temp Pulse Resp BP Pulse Ox 97.7 F 91 18 142/78 96 11/02/22 11:58 11/02/22 11:58 11/02/22 11:58 11/02/22 11:58 11/02/22 11:58 Physical exam: General: Well-developed, well-nourished HEENT: Normocephalic, sclerae nonicteric Abdomen: Nontender, nondistended Extremities: No edema Neuro: Alert and oriented Assessment and Plan (1) Colon cancer screening Narrative/Plan: Will proceed with colonoscopy at this time Current Visit: Yes Status: Acute Code(s): Z12.11 - ENCOUNTER FOR SCREENING FOR MALIGNANT NEOPLASM OF COLON SNOMED Code(s): 361939640
--- NOTE | 2022-11-02 12:52 | P.PCN ---
Date of Procedure: 11/02/22 Procedure(s) Performed: PREOPERATIVE DIAGNOSIS: Colon cancer screening POSTOPERATIVE DIAGNOSIS: Transverse colon polyp 2, tortuous colon PROCEDURE: Colonoscopy with snare polypectomy ANESTHESIA: MAC SURGEON: Jose Braxton M.D. SPECIMENS: Colon polyps ENDOSCOPIC PROCEDURE: The patient was placed on the endoscopy table in the left decubitus position. The Olympus colonoscope was inserted into the anus and passed under direct visualization to the base of the cecum. The appendiceal orifice was visualized. From that point the scope was slowly withdrawn inspecting all surfaces carefully. There were no neoplastic inflammatory or polypoid lesions throughout the cecum or ascending colon. In the mid transverse colon 2 small polyps were identified and removed using the snare with cautery technique. The remainder of the transverse descending sigmoid and rectum. There was no visible diverticulosis. The patient did have significant tortuosity. Digital rectal examination was normal. The patient was taken to the recovery room in stable condition per anesthesia guidelines. RECOMMENDATIONS: Await biopsy results. Repeat colonoscopy 5 years.
[2022-11-02 13:10] VITALS: BP 132/86; PULSE 76; RESP 16
== END 2022-11-02 13:37 | disposition home or self-care (01) ==
LOC: ORWHC2ENDO 11:25
PROVIDERS: ATTEND Surgery
DX: Z12.11 Encounter for screening for malignant neoplasm of colon (principal); D12.3 Benign neoplasm of transverse colon; K63.89 Other specified diseases of intestine; E78.5 Hyperlipidemia, unspecified; K21.9 Gastro-esophageal reflux disease without esophagitis; E03.9 Hypothyroidism, unspecified; Z79.890 Hormone replacement therapy; F32.A Depression, unspecified; Z98.890 Other specified postprocedural states; Z87.09 Personal history of other diseases of the respiratory system; Z83.2 Family history of diseases of the blood and blood-forming organs and certain disorders involving the immune mechanism; Z79.51 Long term (current) use of inhaled steroids; Z79.899 Other long term (current) drug therapy
CPT/HCPCS: 45385; J2704; 88305